=== PATIENT | female | born 1945 | race Caucasian/White ===

== ENCOUNTER 2018-03-15 06:42 | Day surgery (SDC) | payer MEDICARE, OTHER ==
[2018-03-15] MEDS ORDERED: Lactated Ringers 1,000 ML IV SCH (06:45)
[2018-03-15] MEDS ORDERED: Propofol 200 MG/20 ML SDV IV ONE (08:15)
[2018-03-15] MEDS ORDERED: Midazolam 1 MG/ML 2 ML SDV IV ONE (08:15)
--- NOTE | 2018-03-15 08:20 | PCM.HPR ---
H & P Addendum review - H & P Addendum Review Date of Original H & P: 03/13/18 Date Reviewed: 03/15/18 Time Reviewed: 08:00 Patient was Examined: No Changes
--- NOTE | 2018-03-15 09:08 | PCM.OPNOTE ---
- General Post-Op/Procedure Note Date of Surgery/Procedure: 03/15/18 Operative Procedure(s): Colonoscopy with bx's Findings: Sig tics Pre Op Diagnosis: Diarrhea Post-Op Diagnosis: Same Anesthesia Technique: MAC Primary Surgeon: Boyd Pena Anesthesia Provider: Dionne Barber Complications: None Condition: Good
--- NOTE | 2018-03-15 12:16 | OR ---
DATE OF OPERATION: 03/15/2018 SURGEON: Byod Pena MD PREOPERATIVE DIAGNOSIS: Chronic diarrhea. POSTOPERATIVE DIAGNOSIS: Sigmoid diverticulosis. PROCEDURE: Colonoscopy with multiple biopsies. ANESTHESIA: IV sedation. DESCRIPTION OF PROCEDURE: The patient was brought to the procedure room, where she was placed on her left side and IV sedation administered. Digital rectal exam was performed, which was normal. The colonoscope was inserted and advanced to the level of the cecum without difficulty. Cecal position was confirmed by identifying the appendiceal lumen and ileocecal valve. Prep was good and surfaces were well visualized. Upon withdrawing the scope, all segments of the colon were normal other than a few sigmoid diverticula present. I did take 2 biopsies from each of the following areas; cecum, ascending colon, transverse colon, descending colon, sigmoid colon, and rectum. Rectum on retroflexion also appeared normal. The patient tolerated the procedure well and returned to Recovery in a stable condition. RECOMMENDATIONS: I will have the patient continue on her prednisone that was started 2 days ago and follow up with oscar Miller next week for review of pathology report. /[id number] MOO/SUSANNAH
== END 2018-03-15 10:01 | disposition home or self-care (01) ==
LOC: FB.SDS 06:42
PROVIDERS: ATTEND Surgery
DX: A09 Infectious gastroenteritis and colitis, unspecified (principal); K52.832 Lymphocytic colitis; I10 Essential (primary) hypertension; E78.5 Hyperlipidemia, unspecified; K57.30 Diverticulosis of large intestine without perforation or abscess without bleeding; E03.9 Hypothyroidism, unspecified; Z79.899 Other long term (current) drug therapy; Z88.8 Allergy status to other drugs, medicaments and biological substances
CPT/HCPCS: 45380; 88305; J2250; J2704; J7120